=== PATIENT | male | born 1950 | race Asian ===

== ENCOUNTER 2024-08-05 20:20 | Emergency (ER) | payer SELFPAY ==
[2024-08-05] MEDS: SODIUM CHLORIDE 0.9% (SEPSIS BOLUS) IV ONE (20:45)
[2024-08-05 21:51] VITALS: TEMP 36.89184
[2024-08-05 22:43] LABS: CLARITY URINE CLEAR (CLEAR); COLOR URINE YELLOW (YELLOW); GLUCOSE URINE NEGATIVE (NEGATIVE); KETONES URINE TRACE (NEGATIVE); LEUKOCYTE ESTERASE URINE NEGATIVE (NEGATIVE); NITRITE URINE NEGATIVE (NEGATIVE); OCCULT BLOOD URINE 2+ (NEGATIVE); PROTEIN URINE TRACE (NEGATIVE); SPECIFIC GRAVITY URINE 1.028 (1.005-1.030); UROBILINOGEN URINE 0.2 E.U./dL (0.2-1.0)
[2024-08-05 22:49] LABS: DIFFERENTIAL COMMENT 1; HEMATOCRIT. 46.7 % (42.0-52.0); HEMOGLOBIN. 15.6 g/dL (14.0-18.0); MEAN CORPUSCULAR HEMOGLOBIN 31.7 pg (28.0-32.0); MEAN CORPUSCULAR HGB CONC 33.4 g/dL (31.0-37.0); MEAN CORPUSCULAR VOLUME 94.8 fL (80.0-94.0); MEAN PLATELET VOLUME 9.4 fl (7.4-10.4); PLATELET 206 x1000/uL (130-400); RED BLOOD CELL COUNT 4.92 mill/uL (4.7-6.1); RED CELL DISTRIBUTION WIDTH 13.7 % (11.6-14.6); WHITE BLOOD COUNT 10.4 x1000/uL (4.5-11.0)
[2024-08-05 22:53] LABS: BG BASE EXCESS -3.4 mmol/L (-2.0-3.0); BG CARBOXYHEMOGLOBIN 0.5 % (0.5-1.5); BG DEOXYHEMOGLOBIN 4.1 % (0.0-5.0); BG FRACTION INSPIRED OXYGEN 21; BG HCO3 ACT 20.2 mmol/L (21.0-28.0); BG METHEMOGLOBIN 0.1 % (0.5-1.5); BG OXYGEN SATURATION 95.9 % (94.0-98.0); BG OXYHEMOGLOBIN 95.3 % (94.0-98.0); BG PCO2 32.1 mmHg (35.0-48.0); BG PH 7.416 (7.350-7.450); BG PO2 81.6 mmHg (83.0-108.0); BG SAMPLE SITE LEFT BRACHIAL; BG TOTAL HEMOGLOBIN 14.1 g/dL (13.5-17.5); BG VENT MODE ROOM AIR
[2024-08-05 22:58] LABS: CHLORIDE 106 mEq/L (98-107); POTASSIUM 3.8 mEq/L (3.5-5.1); PROTHROMBIN TIME 11.4 sec (9.6-11.0); SODIUM 141 mEq/L (136-145)
[2024-08-05 22:59] LABS: CALCIUM 10.1 mg/dL (8.7-10.4); CARBON DIOXIDE 28 mEq/L (21-32)
[2024-08-05 23:02] LABS: SQUAMOUS EPITHELIAL CELL URINE FEW /lpf (RARE/1+)
[2024-08-05 23:04] LABS: CREATININE 0.9 mg/dL (0.6-1.3); GLUCOSE 104 mg/dL (70-105); UREA NITROGEN BLOOD 22 mg/dL (9-23); WBC URINE 0-2 /hpf (0-2)
[2024-08-05 23:05] LABS: BACTERIA URINE NONE SEEN; CALCIUM OXALATE CRYSTALS URINE 1+ /lpf; TROPONIN I HIGH SENSITIVITY 15 ng/L (3.0-53)
[2024-08-05 23:06] LABS: ALANINE AMINOTRANSFERASE 26 IU/L (10-49); ALBUMIN 5.2 g/dL (3.2-4.8); ASPARTATE AMINOTRANSFERASE 25 IU/L (<34); BILIRUBIN DIRECT 0.5 mg/dL (<=3.0); BILIRUBIN TOTAL 1.8 mg/dL (0.1-1.0)
[2024-08-05 23:07] LABS: PROTEIN TOTAL 7.9 g/dL (6.0-8.3)
[2024-08-05 23:09] LABS: PLATELET ESTIMATE NORMAL
[2024-08-05] MEDS ORDERED: P50 MT (23:19)
[2024-08-05] MEDS ORDERED: FLUT15.844 BOTHNSTRLS (23:19)
[2024-08-06 00:38] VITALS: BP 133/69; PULSE 83; RESP 14; O2SAT 98
== END 2024-08-06 00:39 | disposition home or self-care (01) ==
LOC: ER 20:20
DX: J06.9 Acute upper respiratory infection, unspecified (principal); R06.02 Shortness of breath; I10 Essential (primary) hypertension; N40.0 Benign prostatic hyperplasia without lower urinary tract symptoms; E78.5 Hyperlipidemia, unspecified
CPT/HCPCS: 80076; 80048; 81003; 87430; 83880; 83605; 85025; 85610; 86850; 86900; 86901; 87040; 87086; 84484; 87804 ×2; 36415; 84145; 71045; 82805; 82375; 96360; 96361; 99291; 36600; J7030; Z7610 ×3; A4606